=== PATIENT | male | born 1950 | race Caucasian/White ===

== ENCOUNTER 2016-07-06 17:56 | Emergency (ER) | payer OTHER ==
[~2016-07-06] VITALS: Ht 172.7 cm; Wt 67.3 kg
[~2016-07-06 17:56] MED LIST: ASCO100089 PO; ASPI-351 PO; ATEN25TA7 PO; HYDR1TAB PO; LISI20TA PO; SMV40T PO; TAM4 PO
--- NOTE | 2016-07-06 18:01 | ED.REPORT ---
HPI-Neurologic Deficit Date of Service Jul 06, 2016 ED Provider: Dr. Ortiz Pt is a 65 year old male with a history of HTN who presents to the ED via EMS with concerns for lateralizing weakness that started around noon today. He reports that he was at the store when he started to feel like he was going to pass out, and his left leg was slightly weak. Pt reports that he came home and he noticed that his left arm was weak as well. He denies any visual changes, numbness, or associate headache. He denies any history of smoking. He reports that he was recently diagnosed with a UTI, and it being treated with Ciprofloxacin. He reports that he is taking aspirin on a daily basis, but denies taking any other blood thinners. He has no other complaints. Nursing Notes Stated Complaint: CODE STROKE Chief Complaint: STROKE Nursing Notes Reviewed: Yes Allergies: Uncoded Allergies: BANANAS (Allergy, Unknown, UNKNOWN, 02/06/12) Scheduled Ascorbic Acid-Expunged Drug, Do Not Renew! (Vitamin C-Expunged Drug, Do Not Renew!) 1,000 Mg Tab.chew 1,000 MG PO BID Aspirin-Expunged Drug, Do Not Renew! (Aspirin-Expunged Drug, Do Not Renew!) 325 Mg Tablet 325 MG PO DAILY INSTRUCTED TO STOP Atenolol-Expunged Drug, Do Not Renew! (Atenolol-Expunged Drug, Do Not Renew!) 25 Mg Tablet 50 MG PO DAILY Lisinopril-Expunged Drug, Do Not Renew! (Lisinopril-Expunged Drug, Do Not Renew! ) 20 Mg Tablet 40 MG PO DAILY Simvastatin-Expunged Drug, Choose New Med! (Simvastatin-Expunged Drug, Choose New Med!) 40 Mg Tablet 40 MG PO DAILY Tamsulosin-Expunged Drug, Do Not Renew! (Flomax-Expunged Drug, Do Not Renew!) 0.4 Mg Capsule 0.4 MG PO DAILY Scheduled PRN Hydrocod/APAP-Expunged, Do Not Renew! (VICODIN 5/500-Expunged Drug, Do Not Renew ) 1 Udtab Tablet 1 UDTAB PO Q4 PRN PRN General Time Seen by Provider: 18:08 Chief Complaint Weakness arm... (Left), Weakness leg... (Left), Off balance Hx Obtained From: Patient Arrived By: Ambulance Sudden in Onset?: Yes Onset Occurred: 5 - 8 hours ago Symptom Duration: Since onset Severity: Current: No pain currently Severity: Maximum: No pain Similar Sx Previous: Yes Risk Factors TPA Administration/Criteria Stroke Thrombolytic Therapy : TPA Considered: Yes Neurologist Contacted: No TPA Administered Intravenously: No, exclusion criteria NIH Stroke Scale Level of Consciousness: Alert and responsive (0) Ask Month & Age: Both questions right (0) Open/Close Eyes/Hand Senior Occupational Therapist: Performs both tasks (0) Horizontal EO Movements: None (0) Visual Saldivar: No visual loss (0) Facial Palsy: Normal symmetry (0) Right Arm Motor Drift (10s): No drift 10 sec (0) Left Arm Motor Drift (10s): No drift 10 sec (0) Right Leg Motor Drift (5s): No drift 5 sec (0) Left Leg Motor Drift (5s): No drift 5 sec (0) Limb Ataxia FNF/Heel-Terrazas: No ataxia (0) Sensation (Arms/Legs/Face): No sensory loss (0) Language Aphasia: No aphasia, normal (0) Dysarthria: No dysarthria, normal (0) Extinction/Inattention: No exctinct/inattent (0) NIHSS Score: 0 Time NIHSS Performed: 18:12 Date NIHSS Performed: Jul 06, 2016 Past Medical History Past Medical History UTI Kidney Stones Reports: Hypertension Smoking History Never Smoker Social History Alcohol Use: Denies alcohol use Drug Use: Denies drug use Ambulatory Status Independent Review of Systems Constitutional: Denies: Chills, Fever, Malaise Respiratory: Denies: Non-productive cough, Shortness of breath, Wheezing Cardiovascular: Denies: Chest pain, Syncope GI: Denies: Abdominal pain, Constipation, Diarrhea, Nausea, Vomiting Musculoskeletal: Denies: Back pain Skin: Denies Diaphoresis Neurologic: Reports: Focal weakness, Lightheaded, Weakness, Denies: Headache Complete sys rev & neg: except as marked. Physical Exam Initial Vital Signs Vital Signs (First) Date Time Temp Pulse Resp B/P Pulse Ox O2 Delivery O2 Flow Rate FiO2 07/06/16 18:04 97 18 184/105 96 Room Air 07/06/16 19:30 36.6 See Paper Chart Initial VS: Reviewed ENT: Mucous membranes moist, Conjunctiva normal, No scleral icterus Neck: Supple, Non-tender, Full range of motion Skin: Warm, Dry, No cyanosis General/Constitutional: Awake, Alert, Well appearing, Well nourished, Cooperative Head / Eyes: Atraumatic, Normocephalic, PERRL, EOMI Respiratory / Chest: Atraumatic, Breath sounds NL, Breath sounds = bilat, No respiratory distress, No rales Cardiovascular: Heart rate NL, Regular rhythm, Heart sounds NL, No gallop, No murmurs Neurologic: Oriented X3, Speech NL, No sensory deficits NIH score of 0 - see risk section for details Interpretation & Diagnostics Lab Results Interpretation Result Diagram: 07/06/16 0800 07/06/16 0800 Test 07/06/16 08:00 07/06/16 18:00 White Blood Count 10.3th/mm3 (3.8-10.1) Red Blood Count 4.31mil/mm3 (4.40-5.80) Hemoglobin 12.3g/dL (13.8-17.2) Hematocrit 38.1% (41.0-50.0) Mean Corpuscular Volume 88.4fL (81-100) Mean Corpuscular Hemoglobin 28.5pg (27.0-35.0) Mean Corpuscular Hemoglobin Concent 32.3% (32.0-37.0) Red Cell Distribution Width 13.0% (12.3-15.4) Platelet Count 522bil/L (150-400) Neutrophils (%) (Auto) 61.1% (40-74) Lymphocytes (%) (Auto) 21.2% (14-46) Monocytes (%) (Auto) 10.3% (4-12) Eosinophils (%) (Auto) 6.5% (0-5) Basophils (%) (Auto) 0.4% (0-3) Prothrombin Time 10.5sec (8.1-12.5) Prothromb Time International Ratio 0.98ratio Sodium Level 136mEq/L (134-144) Potassium Level 4.1mEq/L (3.5-5.2) Chloride Level 97mEq/L (97-108) Carbon Dioxide Level 27mmol/L (18-29) Blood Urea Nitrogen 24mg/dL (8-27) Creatinine 1.28mg/dL (0.76-1.27) Estimat Glomerular Filtration Rate 60mL/min (>59) Glucose Level 93mg/dL (60-99) Calcium Level 8.6mg/dL (8.5-10.1) Total Bilirubin 0.2mg/dL (0.0-1.2) Aspartate Amino Transf (AST/SGOT) 35U/L (0-50) Alanine Aminotransferase (ALT/SGPT) 28U/L (0-44) Alkaline Phosphatase 69U/L (25-160) Total Protein 7.4g/dL (6.4-8.4) Albumin 3.8g/dL (3.4-5.0) Hold Purple Top Tube Received (Received) Hold Blue Top Tube Received (Received) Hold Red Top Tube Received (Received) Hold [place] Top Tube Received (Received) ECG Interpretation ECG Interpretation: SR - 85 LVH Left atrial enlargement Time: 18:28 Interpreted by: ED physician CT Head Interpretation IMPRESSION: Small acute bleed. Location would fit clinically. Location would suggest hypertensive bleed. This study fulfills neurological imaging criteria for inclusion or exclusion of acute stroke therapies based on available published neurological guidelines. Dictated by: Robert Camarillo M.D. on 07/06/2016 at 18:07 Study: Head CT no contrast Interpretation / Wet Read by: Interpret - Radiologist, Discussed w radiologist Re-Eval/Medical Decision Med Decision/Clinical Course This is a 65 year old male with a history of HTN who presents with rapidly resolving right sided weakness. CT scan confirms an intracranial hemorrhage. He currently has an NIH score of 0 and a GCS score of 15. Goals now are to keep to the bed at 30 degrees, watch for seizure activity and obtain an MAP 100-110. Plan to transfer him to [facility]. Source of Hx: Old records, EMS Re-Evaluation/Progress #1: Time of Eval: 18:19 Re-Evaluation/Progress Note: Pt is informed of his imaging results and the need to transfer him to [facility]. He understands and agrees, all questions are addressed. Re-Evaluation/Progress #2: Time of Eval: 18:40 Re-Evaluation/Progress Note: Pt is rechecked. He is informed that [facility] accepted the transfer and he will be leaving via airlift shortly. All questions are addressed. Consultation : Referral / Consult Name: [facility] Call Returned at: 18:37 Advertising Director: Will see patient Note: Spoke with Dr. Kendra Singer. Accepts transfer. Agrees with plan to obtain a systolic blood pressure of 160. Agrees with plan to transfer him via airlift. Counseled Regarding: Diagnosis, Lab results, Need for transfer Discharge & Departure Impression: Primary Impression: Intracranial hemorrhage Disposition: Transfer, Acute Care Facility Transfer Requested at: 18:32 Call returned time Receiving Hospital: [facility] Transfer Accepted: Yes Transfer Accepted at: 18:32 Transfer Reason: Higher level of care Spoke with: Attending physician (Dr. Kendra Singer) Patient Status: Stable Patient Informed: Yes Discharge Condition All VS Reviewed: Yes Condition: Stable Referrals: Indra Leonard ND (PCP) Crit Care Except Billable Proc Time Spent: 75-104 minutes Services Performed: Patient management by me, Time spent at bedside, Reviewing test results, Reviewing imaging, Discussing patient care, Documentation in record, Time with fam/surrogate Scribe Attestation Portions of this note were transcribed by Cherie Pizarro. I, Dr. Ortiz personally performed the history, physical exam and medical decision-making; I reviewed and confirmed the accuracy of the information in the transcribed note. Signed by: Jane Harris, 07/06/2016 18:52. copies to: Indra Leonard ND, Todd P DO Jul 06, 2016 18:01 TANGELA PIZARRO Jul 06, 2016 18:17
[2016-07-06 18:04] VITALS: BP 184/105; PULSE 97; RESP 18; O2SAT 96
[2016-07-06 18:12] LABS: BASOPHILS % (AUTO) 0.4 % (0-3); EOSINOPHILS % (AUTO) 6.5 % (0-5); MONOCYTES % (AUTO) 10.3 % (4-12); Mean Corpuscular Hemoglobin 28.5 pg (27.0-35.0); Mean Corpuscular Volume 88.4 fL (81-100); NEUTROPHILS % (AUTO) 61.1 % (40-74); Platelet Count 522 bil/L (150-400)
[2016-07-06] MEDS ORDERED: Labetalol 5 mg/mL 4 mL Inj ONE (18:12)
--- NOTE | 2016-07-06 18:14 | DRSVH ---
PROCEDURE: CT BRAIN (TPA) ([id number]) INDICATIONS: LEFT SIDED WEAKNESS TECHNIQUE: Noncontrast 4.5 mm thick angled axial sections acquired from the foramen magnum to the vertex, with c oronal reformats. COMPARISON: None. FINDINGS: Image quality: Excellent. CSF spaces: Basal cisterns are patent. No extra-axial fluid collections. The ventricles are symmet mere in size and shape. Brain: There is a focal area, 8 mm in dimension, of 64 Hounsfield units consistent with bleed in the right lower aspect of centrum semiovale or upper aspect of the region of the genu of or posterior li mb of the internal capsule. Edema is not appreciated indicating acute change consistent with history of urgency for CT reading. There is cerebral volume loss for age, with resultant ventricular and sulc al prominence. There are periventricular and deep white matter chronic small vessel ischemic changes . There is intracranial internal carotid artery atherosclerosis. Skull and face: Calvarium and visualized facial bones appear intact, without suspicious lesions. Sinuses: Visualized sinuses and mastoids are clear. IMPRESSION: Small acute bleed. Location would fit clinically. Location would suggest hypertensive ble ed. This study fulfills neurological imaging criteria for inclusion or exclusion of acute stroke therapie s based on available published neurological guidelines. Dictated by: Robert Camarillo M.D. on 07/06/2016 at 18:07 Approved by: Robert Camarillo M.D. on 07/06/2016 at 18:12
[2016-07-06] MEDS ORDERED: Labetalol 5 mg/mL 4 mL Inj IVPUSH ONE (18:15)
[2016-07-06 18:27] LABS: INR 0.98 ratio
[2016-07-06] MEDS: Labetalol 5 mg/mL 4 mL Inj IVPUSH PRN ×2 (18:38→18:48)
[2016-07-06 19:30] VITALS: BP 150/88; PULSE 78; RESP 16; O2SAT 96
[2016-10-18] MEDS ORDERED: HYDR12.5 PO (09:28)
[2016-10-18] MEDS ORDERED: ASPI-973 PO (09:28)
[2016-10-18] MEDS ORDERED: AMLO10TA3 PO (09:28)
[2016-10-18] MEDS ORDERED: TAMS0.4C98 PO (09:28)
[2016-10-18] MEDS ORDERED: ROSU40TA20 PO (09:28)
== END 2016-07-06 19:25 | disposition short-term general hospital (02) ==
LOC: SED 17:56
DX: I61.9 Nontraumatic intracerebral hemorrhage, unspecified (principal); R40.2410 Glasgow coma scale score 13-15, unspecified time; I10 Essential (primary) hypertension; Z87.440 Personal history of urinary (tract) infections; Z79.82 Long term (current) use of aspirin

== ENCOUNTER 2016-07-30 17:46 | Emergency (ER) | payer OTHER ==
[~2016-07-30] VITALS: Ht 170.2 cm; Wt 65.0 kg
[2016-07-30 17:51] VITALS: BP 143/90; PULSE 85; RESP 14; O2SAT 97
--- NOTE | 2016-07-30 18:07 | ED.REPORT ---
HPI-Stroke / CVA Jul 30, 2016 ED Provider: Chetan Meyer MD A 65 year old male with a history of hypertension, UTI, and recent hemorrhagic stroke (07/2016) presents to the ED with left-sided lip and distal left thumb paresthesias onset last night. The patient denies fever, vomiting, focal weakness, or other symptoms. These symptoms are dissimilar from those related to his recent hemorrhagic stroke, for which he was seen in the ED on 07/06/16 and subsequently transferred to [facility]. Nursing Notes Stated Complaint: STROKE SYMPTOMS Chief Complaint: Neuro Symptoms/ Deficits Nursing Notes Reviewed: Yes Allergies: Uncoded Allergies: BANANAS (Allergy, Unknown, UNKNOWN, 02/06/12) Scheduled Ascorbic Acid-Expunged Drug, Do Not Renew! (Vitamin C-Expunged Drug, Do Not Renew!) 1,000 Mg Tab.chew 1,000 MG PO BID (Reported) Aspirin-Expunged Drug, Do Not Renew! (Aspirin-Expunged Drug, Do Not Renew!) 325 Mg Tablet 325 MG PO DAILY (Reported) INSTRUCTED TO STOP Atenolol-Expunged Drug, Do Not Renew! (Atenolol-Expunged Drug, Do Not Renew!) 25 Mg Tablet 50 MG PO DAILY (Reported) Lisinopril-Expunged Drug, Do Not Renew! (Lisinopril-Expunged Drug, Do Not Renew! ) 20 Mg Tablet 40 MG PO DAILY (Reported) Simvastatin-Expunged Drug, Choose New Med! (Simvastatin-Expunged Drug, Choose New Med!) 40 Mg Tablet 40 MG PO DAILY (Reported) Tamsulosin-Expunged Drug, Do Not Renew! (Flomax-Expunged Drug, Do Not Renew!) 0.4 Mg Capsule 0.4 MG PO DAILY (Reported) Scheduled PRN Hydrocod/APAP-Expunged, Do Not Renew! (VICODIN 5/500-Expunged Drug, Do Not Renew ) 1 Udtab Tablet 1 UDTAB PO Q4 PRN PRN (Reported) General Time Seen by Provider: 18:06 Chief Complaint Other (Tingling) Left-sided, Face left (Lips), Hand left (Distal thumb) Hx Obtained From: Patient Arrived By: Walk-in Time last known well Patient noticed symptoms last night Sudden in Onset?: No Symptom Duration: Since onset Progression Since Onset: Unchanged Severity: Current: No pain currently Severity: Maximum: No pain Associated with: Denies: Vomiting Pertinent Negative: Pt denies other symptoms Pertinent Negative: Relieved by nothing Context Related History: Reports: Cerebrovascular accident, Intracranial bleed Context: Immunizations Unknown Recent Healthcare: Recent doctor visit, Recent hospitalization Similar Sx Previous: No Risk Factors NIH Stroke Scale Level of Consciousness: Alert and responsive (0) Ask Month & Age: Both questions right (0) Open/Close Eyes/Hand Residential Gas Heat Technician: Performs both tasks (0) Horizontal EO Movements: None (0) Visual Saldivar: No visual loss (0) Facial Palsy: Normal symmetry (0) Right Arm Motor Drift (10s): No drift 10 sec (0) Left Arm Motor Drift (10s): No drift 10 sec (0) Right Leg Motor Drift (5s): No drift 5 sec (0) Left Leg Motor Drift (5s): No drift 5 sec (0) Limb Ataxia FNF/Heel-Terrazas: No ataxia (0) Sensation (Arms/Legs/Face): No sensory loss (0) Language Aphasia: No aphasia, normal (0) Dysarthria: No dysarthria, normal (0) Extinction/Inattention: No exctinct/inattent (0) NIHSS Score: 0 Time NIHSS Performed: 18:10 Date NIHSS Performed: Jul 30, 2016 Past Medical History Past Medical History UTI Kidney Stones Hypertension Hemorrhagic stroke 07/2016 Past Surgical History None reported Smoking History Never Smoker Social History Alcohol Use: Denies alcohol use Drug Use: Denies drug use Ambulatory Status Independent Review of Systems Review of Systems Note: + Left-sided lip and distal left thumb paresthesias Constitutional: Denies: Fever Respiratory: Denies: Non-productive cough, Shortness of breath GI: Denies: Diarrhea, Vomiting Neurologic: Denies: Focal weakness Complete sys rev & neg: except as marked. Physical Exam Initial Vital Signs Vital Signs (First) Date Time Temp Pulse Resp B/P Pulse Ox O2 Delivery O2 Flow Rate FiO2 07/30/16 17:51 36.7 85 14 143/90 97 Room Air Initial VS: Reviewed Skin: Warm, Dry Psychiatric: Mood/affect normal, Behavior normal, Normal thought content General/Constitutional: Awake, Alert, No acute distress Head / Eyes: Atraumatic, Normocephalic, PERRL, EOMI, Visual acuity NL Respiratory / Chest: Breath sounds NL, Breath sounds = bilat, No respiratory distress Cardiovascular: Heart rate NL, Regular rhythm, Heart sounds NL Neurologic: Oriented X3, Speech NL, No motor deficits, CN II - XII intact Patient reports numbness to tip of index finger and thumb as well as left-sided upper and lower lips Interpretation & Diagnostics Lab Results Interpretation Test 07/30/16 18:30 Hold Purple Top Tube Received (Received) Hold Blue Top Tube Received (Received) Hold Red Top Tube Received (Received) Hold [place] Top Tube Received (Received) Hold [place] Top Tube Received (Received) ECG Interpretation ECG Interpretation: Sinus rhythm rate 82 Multiple ventricular premature complexes Probable left atrial enlargement LVH Time: 19:11 Interpreted by: ED physician CT Head Interpretation IMPRESSION: No acute intracranial abnormality. Dictated by: Edwin Quiles M.D. on 07/30/2016 at 19:09 Study: Head CT no contrast Interpretation / Wet Read by: Interpret - Radiologist Re-Eval/Medical Decision Source of Hx: Old records Re-Evaluation/Progress #1: Time of Eval: 20:27 Patient Status: Condition improved Re-Evaluation/Progress Note: Discussed with patient CT results and plan for consult with neurology at [facility]. Re-Evaluation/Progress #2: Time of Eval: 21:13 Patient Status: Condition improved Re-Evaluation/Progress Note: Discussed with patient CT and lab results, diagnosis, and plan for discharge. Follow-up and return to the ER instructions given. Patient agrees with plan for care and all questions were addressed. Consultation : Referral / Consult Name: Esther Ochoa MD Consulted With: Neurology Requested Call at: 20:40 Call Returned at: 20:58 Sub Plant Manager: Agrees with eval, Agrees with plan Note: [facility]: Discussed patient's case. Recommends starting on Amlodipine and discharge. However, the patient reports that he is in fact only on lisinopril 10 mg and no other antihypertensives. Dr. Ochoa had understood that the patient was on 40 mg of lisinopril and metoprolol already. She states that post hemorrhage edema even 2 or 3 weeks later can cause subtle sensory abnormalities only and felt that this was the most likely etiology for the symptoms the patient described. Counseled Regarding: Diagnosis, Lab results, Need for follow-up, When/why to return to ED Patient Discharge & Departure Impression: Primary Impression: Left sided numbness Disposition: Home Discharge Condition All VS Reviewed: Yes Condition: Improved Patient Instructions: Chronic Hypertension (ED) Additional Instructions: Thank you for entrusting us with your care. Your head CT was normal. No new stroke or hemorrhage demonstrated. Increased your Lisinopril dosage to 20mg per day. Check your blood pressure at rest a couple of times a day. Bring these numbers to your primary care provider. Call your primary care provider tomorrow for a follow-up appointment in 2 or 3 days. Return to the ER with any new or worsening symptoms, especially if there is any associated weakness. Referrals: Indra Leonard ND (PCP) [place] Attestation Portions of this note were transcribed by Anju Melendez. I, Dr. Meyer, personally performed the history, physical exam, and medical decision-making; I reviewed and confirmed the accuracy of the information in the transcribed note. Signed by: Jane Lima, 07/30/2016, 22:25 copies to: Indra Leonard ND, Kirk H MD Jul 30, 2016 18:07 ANJU MELENDEZ Jul 30, 2016 18:15
[2016-07-30 18:27] VITALS: BP 149/86; PULSE 84; RESP 14; O2SAT 97
[2016-07-30] MEDS ORDERED: predniSONE 20 mg Tablet PO ONE (19:00)
--- NOTE | 2016-07-30 19:11 | DRSVH ---
PROCEDURE: CT BRAIN WITHOUT CONTRAST ([id number]) INDICATIONS: numb face and left hand numb TECHNIQUE: Noncontrast 4.5 mm thick angled axial sections acquired from the foramen magnum to the vertex, with c oronal reformats. COMPARISON: None. FINDINGS: Image quality: Excellent. CSF spaces: Basal cisterns are patent. No extra-axial fluid collections. The ventricles are symmet mere in size and shape. Brain: No intracranial bleeds or masses. There is cerebral volume loss for age, with resultant vent ricular and sulcal prominence. There are periventricular and deep white matter chronic small vessel ischemic changes. There is intracranial internal carotid artery atherosclerosis. Skull and face: Calvarium and visualized facial bones appear intact, without suspicious lesions. Sinuses: Visualized sinuses and mastoids are clear. IMPRESSION: No acute intracranial abnormality. Dictated by: Edwin Quiles M.D. on 07/30/2016 at 19:09 Approved by: Edwin Quiles M.D. on 07/30/2016 at 19:09
[2016-07-30 19:26] VITALS: BP 164/88; PULSE 84; RESP 17; O2SAT 98
[2016-07-30 21:32] VITALS: BP 162/92; PULSE 90; RESP 16; O2SAT 96
[2016-10-18] MEDS ORDERED: ASPI-973 PO (09:28)
[2016-10-18] MEDS ORDERED: AMLO10TA3 PO (09:28)
[2016-10-18] MEDS ORDERED: HYDR12.5 PO (09:28)
[2016-10-18] MEDS ORDERED: TAMS0.4C98 PO (09:28)
[2016-10-18] MEDS ORDERED: ROSU40TA20 PO (09:28)
== END 2016-07-30 21:33 | disposition home or self-care (01) ==
LOC: SED 17:46
DX: R20.0 Anesthesia of skin (principal); I10 Essential (primary) hypertension; Z86.73 Personal history of transient ischemic attack (TIA), and cerebral infarction without residual deficits

== ENCOUNTER 2016-10-19 10:44 | Day surgery (SDC) | payer OTHER ==
[~2016-10-19] VITALS: Ht 170.2 cm; Wt 65.7 kg
[2016-10-19] VITALS (8 sets, daily range): BP systolic 136–149; BP diastolic 73–86; PULSE 69–89; RESP 14–18; O2SAT 96–99
[~2016-10-19 10:44] MED LIST changes: +AMLO10TA3 PO; -ASCO100089 PO; -ASPI-351 PO; +ASPI-973 PO; -ATEN25TA7 PO; +HYDR12.5 PO; -HYDR1TAB PO; -LISI20TA PO; +Lactated Ringer's 1,000 ML IV SCH; +ROSU40TA20 PO; -SMV40T PO; -TAM4 PO; +TAMS0.4C98 PO
[2016-10-19] MEDS ORDERED: Propofol 10,000 mCg/mL 20 mL Inj ONE (10:45)
[2016-10-19] MEDS ORDERED: Ondansetron 2 mg/mL 2 mL Inj ONE (10:45)
[2016-10-19] MEDS ORDERED: MetoCLOpramide 5 mg/mL 2 mL Inj ONE (10:45)
[2016-10-19] MEDS ORDERED: CeFAZolin 2 Gm/50 mL D5W Duplex Bag IV ONE (10:52)
[2016-10-19] MEDS ORDERED: Lactated Ringer's 1,000 ML IV ONE (11:01)
--- NOTE | 2016-10-19 11:37 | PCM.HPANE ---
Patient Data Surgeon Admitting Provider: Attending Provider:Tita Krishna MD Primary Care Physician:Indra Leonard ND Other Provider:Jules Keenan Anesthesia Reason for Visit Calculus Of Ureter Ht/WT & BMI Height (Feet): 5 Height (Inches): 7.00 Weight (Kilograms): 65.700 Body Mass Index 22.00 Allergies Uncoded Allergies: BANANAS (Allergy, Unknown, UNKNOWN, 02/06/12) Past Anesthesia History Anesthesia History: Denies:: Abnormal Airway, Anesthesia Reactions, Difficult Intubation, Fam Anesthesia Reaction, Fam Malignant Hypertherm, Malignant Hyperthermia Diabetes History Hx Diabetes?: No MRSA MRSA: No Medications Blood Thinner: Aspirin Hypertension Medication: Yes Home Meds Incl Beta Renny: No Reported Medications Tamsulosin (Flomax)0.4 Mg Capsule0.4 Mg PO DAILY Ref 0 10/18/16 Aspirin 81 Mg Bhwick58 Mg PO DAILY Ref 0 10/18/16 Rosuvastatin Calcium 40 Mg Dvvwyf11 Mg PO DAILY 10/18/16 Hydrochlorothiazide 12.5 Mg Xtoevsq22.5 Mg PO DAILY 30 Days Ref 0 10/18/16 Amlodipine 10 Mg Gbjhrj22 Mg PO DAILY Ref 0 10/18/16 Discontinued Reported Medications Tamsulosin-Expunged Drug, Do Not Renew! (Flomax-Expunged Drug, Do Not Renew!) 0.4 Mg Capsule0.4 Mg PO DAILY #30 CAP 05/08/12 Ascorbic Acid-Expunged Drug, Do Not Renew! (Vitamin C-Expunged Drug, Do Not Renew!)1,000 Mg Tab.chew1,000 Mg PO BID 02/06/12 Lisinopril-Expunged Drug, Do Not Renew! 20 Mg Gtcepr65 Mg PO DAILY 01/30/12 Atenolol-Expunged Drug, Do Not Renew! 25 Mg Rgvuuz10 Mg PO DAILY 01/30/12 Aspirin-Expunged Drug, Do Not Renew! 325 Mg Klwley491 Mg PO DAILY INSTRUCTED TO STOP 06/17/11 Hydrocod/APAP-Expunged, Do Not Renew! (VICODIN 5/500-Expunged Drug, Do Not Renew )1 Udtab Tablet1 Udtab PO Q4 PRN 06/17/11 Simvastatin-Expunged Drug, Choose New Med! 40 Mg Dkrgyf13 Mg PO DAILY 06/17/11 History History of ENT Problems?: Yes HEENT History: Positive for:: Sinus Problem (hx septoplasty early ) Denies:: Abnormal Airway Cataracts Difficult Intubation Dysphagia Glaucoma Hearing Problem TMJ Denture Type: None Teeth Condition: Within Normal Limits Hx of Heart Problems?: Yes Cardiovascular History: Positive for:: Cardiac Surgery (JUN 2011 [place] AND STENT PLACEMENT) Hypertension Denies:: AICD Chest Pain Congestive Heart Failure Heart Murmur Irregular Heartbeat Pacemaker Peripheral Vascular Hx of Respiratory Problem?: Yes Respiratory History: Positive for:: Asthma (as child- resolved ) Pneumonia (remote hx of - single episode ) Use of C-PAP Machine (recommended after stroke- no sleep study done yet ) Denies:: COPD Emphysema Oxygen Administration Tuberculosis Use of Inhalers / NEBS Hx Neurologic Problems?: Yes Neurological History: Positive for:: CVA (july 2016- treated at [facility]- no residual ) Headaches (r/t neck pain) Denies:: Multiple Sclerosis Parkinson's Disease Seizures TIA Hx of GI Problems?: Yes Hx of Problems?: Yes Genitourinary History: Positive for:: Kidney Stones (left current admission problem, prior hx of) Urinary Tract Infection (spring last episode) Male Hx: Positive for:: Prostate Problems (BPH) Denies:: Scrotal Mass Testicular Surgery Skin History: Denies:: History Skin Disorders? Pressure Ulcers Hx Musculoskeletal Problems?: No Musculoskeletal History: Denies:: Back Injury Fibromyalgia Joint Replacement Musculoskeletal Trauma Myasthenia Gravis Osteoarthritis Rheumatoid Arthritis Systemic Lupus Hx of Psycho/Social Problems?: No Psycho Social History: Denies:: Anxiety Hx Depression Hx Surgeries?: Yes (lithostripsy, angiogram with stent, hernia repair) Hx Any Other Health Problems?: Yes Other History: Positive for:: Hospitalization Denies:: Cancer Endocrine Disease Thyroid Disease History Blood Transfusions: Positive for:: Accept Blood Products? Denies:: Blood Transfuse Reaction Blood Transfusions Hx Diabetes: No Hx Alcohol Use: NoHx Substance Use: No Smoking Status: Former Smoker Have You Smoked inLast 12 mo: No Stop/Bang Treated for Sleep Apnea?: No Do You Have a CPAP Machine?: No P-Blood Pressure: treated: Yes B- Body Mass Index > 35 kg/m2: No A- Age over 50: Yes N- Neck Large Circumference: No G- Gender Male: Yes MAHESH Risk Assessment: Low Risk, <3 Yes Risk Assessment Category Category 1A: Patient has history of documented sleep apnea, and HAS NOT received any narcotic, sedative or anesthesia administration during this stay. Category 1B: Patient has history of documented sleep apnea, and HAS received any narcotic , sedative or anesthesia administration during this stay Category 2: Patient has SUSPECTED Obstructive Sleep Apnea, and HAS received any narcotic , sedative or anesthesia administration during this stay. Category 3: Patient has SUSPECTED Obstructive Sleep Apnea and HAS NOT received narcotic, sedative or anesthesia administration during this stay. Category 4: Outpatient in Procedural Areas with known sleep apnea or who screen positive for High Risk via the STOP/BANG questionnaire. Exam Exam Vital Signs Vital Signs Date Time Temp Pulse Resp B/P Pulse Ox O2 Delivery O2 Flow Rate FiO2 10/19/16 11:17 36.4 89 18 145/79 97 Room Air General Appearance: Oriented X3 HEENT/AIRWAY: MP 2 Lungs: Normal Air Movement Heart: Regular Rate/Rhythm Meds/Labs/Diagnostics Admission Meds Current Medications Acetaminophen 1000 mg 1,000 mg STK-MED ONCE IV Last administered on 10/19/16 11:25; Start 10/19/16 at 10:53; Stop 10/19/16 at 10:57; Status DC Lactated Ringer's (Lr) 1,000 ml @ ud STK-MED ONCE IV Last administered on 10/19 11:01; Start 10/19/16 at 11:01; Stop 10/19/16 at 11:02; Status DC Plan Impression Patient chart reviewed, patient interviewed and anesthestic plan with risks, benefits, and alternatives discussed, and informed consent obtained. ASA Physical Status: ASA3 Severe Disease Anesthetic Plan: GA Bene/Risks/Altern/Consents: Yes HP Complete Prior to Induction: Yes Dung Paniagua MD Oct 19, 2016 11:37
[2016-10-19] MEDS ORDERED: Lactated Ringer's 1,000 ML IV SCH (12:40)
[2016-10-19] MEDS ORDERED: Dexamethasone 4 mg/mL Inj IVPUSH PRN (12:40)
[2016-10-19] MEDS ORDERED: Lactated Ringer's 500 ML IV PRN (12:40)
[2016-10-19] MEDS ORDERED: fentaNYL-PF 50 mCg/mL 2 mL Inj IVPUSH PRN (12:40)
[2016-10-19] MEDS ORDERED: Phenylephrine 10,000 mCg/mL Inj IVPUSH PRN (12:40)
[2016-10-19] MEDS ORDERED: HYDROmorphone 1 mg/mL Inj IVPUSH PRN (12:40)
[2016-10-19] MEDS ORDERED: EPHEDrine Sulfate 50 mg/mL Inj IVPUSH PRN (12:40)
[2016-10-19] MEDS ORDERED: MetoCLOpramide 5 mg/mL 2 mL Inj IVPUSH PRN (12:40)
[2016-10-19] MEDS ORDERED: Ondansetron 2 mg/mL 2 mL Inj IVPUSH PRN (12:40)
[2016-10-19] MEDS ORDERED: Furosemide 10 mg/mL 2 mL Inj IV ONE (13:30)
--- NOTE | 2016-10-19 14:08 | PCM.ANEP1 ---
Post Anesthesia PACU Phase 1 Assessment Vital Signs Vital Signs Date Time Temp Pulse Resp B/P Pulse Ox O2 Delivery O2 Flow Rate FiO2 10/19/16 14:00 85 15 138/73 97 Room Air 10/19/16 13:45 81 16 142/77 98 Room Air 10/19/16 13:40 72 14 142/79 99 Simple Mask 10 10/19/16 13:35 69 15 136/80 99 Simple Mask 10 10/19/16 13:30 36.6 77 17 140/84 99 Simple Mask 10 10/19/16 11:17 36.4 89 18 145/79 97 Room Air Anesthetic Administered: GA Level of Alertness: Awake, talking Pain: No Nausea or Vomiting: No CV Function & Hydration Stable: Yes Airway Device: Lungs: Normal Air Movement PACU Phase 2 Assessment Patient Instructions Provided: N/A Dung Paniagua MD Oct 19, 2016 14:08
--- NOTE | 2016-10-19 19:03 | OP ---
[address] [address] OPERATIVE REPORT PATIENT: KATYA HOWARD : 1950 MR#: [id number] ADMIT: 10/19/2016 JOB ID: [id number] DATE OF SURGERY: 10/19/2016 PREOPERATIVE DIAGNOSIS(ES): 1. Obstructing 1.3 cm left ureteropelvic junction calculus. 2. Large left renal stone burden. 3. Left renal colic. POSTOPERATIVE DIAGNOSIS(ES): 1. Obstructing 1.3 cm left ureteropelvic junction calculus. 2. Large left renal stone burden. 3. Left renal colic. PROCEDURE PERFORMED: 1. Cystoscopy and left ureteral stent placement. 2. Left extracorporeal shockwave lithotripsy (ESWL). (Maximal power level of 5.0 x 2500 shocks.) SURGEON: Tita Krishna MD ANESTHESIOLOGIST: Dung Paniagua MD ANESTHESIA: General. PROCEDURE SUMMARY: The patient was positioned in supine and was administered general anesthesia. He was then positioned appropriately on the lithotripsy table in semilithotomy. The lower abdomen, genitalia, and groin were prepped and draped in sterile fashion. The 22-Jamaican panendoscope was then passed through the lower urinary tract with findings of a normal urethra, intact external sphincter, a 4.5-5 cm obstructing trilobar hyperplasia, and a bladder with 2+ trabeculation and a few small stones in the bladder floor. Orifices were normal position bilaterally. The left was slightly patulous. Next, a 0.35 Glidewire was passed into the left collecting system under direct and fluoroscopic guidance. Over this a 6-Jamaican x 22-32 cm multilength stent was positioned satisfactorily, again under direct and fluoroscopic guidance. NO RETRIEVAL LINE WAS LEFT IN PLACE. Next the bladder was drained completely. All instrumentation was removed. The patient was then repositioned supine and the above-described stone was localized in the X, Y, and Z planes. Lithotripsy was commenced at minimal power level and continued for approximately 200 shocks. A 2-minute pause was then conducted, after which lithotripsy was again commenced, initially at low power level and gradually increased to a maximal power low power level of 5.0. A total of 2500 shocks was delivered to the stone, with good evidence of comminution. The stent was left indwelling. The patient was then awakened, transferred to a gurney, and transferred to recovery in stable condition.
== END 2016-10-19 23:59 | disposition home or self-care (01) ==
LOC: SAS 10:44
PROVIDERS: ATTEND Specialist
DX: N20.2 Calculus of kidney with calculus of ureter (principal); I10 Essential (primary) hypertension; I25.10 Atherosclerotic heart disease of native coronary artery without angina pectoris; N40.0 Benign prostatic hyperplasia without lower urinary tract symptoms; J45.909 Unspecified asthma, uncomplicated; M50.30 Other cervical disc degeneration, unspecified cervical region; I25.2 Old myocardial infarction; Z79.82 Long term (current) use of aspirin; Z87.442 Personal history of urinary calculi; Z95.5 Presence of coronary angioplasty implant and graft; Z87.891 Personal history of nicotine dependence
CPT/HCPCS: 50590; 52332; C2617; J0131; J0690; J1940; J2405; J2765; J7120

== ENCOUNTER 2016-11-16 09:11 | Day surgery (SDC) | payer OTHER ==
[2016-11-16] VITALS (9 sets, daily range): BP systolic 112–155; BP diastolic 64–83; PULSE 8–90; RESP 11–16; O2SAT 96–100
[~2016-11-16] VITALS: Ht 170.2 cm; Wt 63.4 kg
[~2016-11-16 09:11] MED LIST changes: +Acetaminophen IV 1,000 MG in IV Premix 1 EACH IV ONE; -HYDR12.5 PO; +HYDR25TA4 PO; +LIP40 PO; -Lactated Ringer's 1,000 ML IV SCH
[2016-11-16] MEDS ORDERED: fentaNYL-PF 50 mCg/mL 2 mL Inj ONE (09:12)
[2016-11-16] MEDS ORDERED: Ondansetron 2 mg/mL 2 mL Inj ONE (09:12)
[2016-11-16] MEDS ORDERED: Propofol 10,000 mCg/mL 20 mL Inj ONE (09:12)
[2016-11-16] MEDS ORDERED: Dexamethasone 4 mg/mL Inj ONE (09:12)
[2016-11-16] MEDS: Lactated Ringer's 1,000 ML IV SCH ×3 (10:10→12:46)
[2016-11-16] MEDS ORDERED: Lactated Ringer's 500 ML IV PRN (11:30)
[2016-11-16] MEDS ORDERED: Dexamethasone 4 mg/mL Inj IVPUSH PRN (11:30)
[2016-11-16] MEDS ORDERED: HYDROmorphone 1 mg/mL Inj IVPUSH PRN (11:30)
[2016-11-16] MEDS ORDERED: EPHEDrine Sulfate 50 mg/mL Inj IVPUSH PRN (11:30)
[2016-11-16] MEDS ORDERED: MetoCLOpramide 5 mg/mL 2 mL Inj IVPUSH PRN (11:30)
[2016-11-16] MEDS ORDERED: Ondansetron 2 mg/mL 2 mL Inj IVPUSH PRN (11:30)
[2016-11-16] MEDS ORDERED: Lactated Ringer's 1,000 ML IV SCH (11:30)
[2016-11-16] MEDS ORDERED: fentaNYL-PF 50 mCg/mL 2 mL Inj IVPUSH PRN (11:30)
[2016-11-16] MEDS ORDERED: Phenylephrine 10,000 mCg/mL Inj IVPUSH PRN (11:30)
--- NOTE | 2016-11-16 11:30 | PCM.HPANE ---
Patient Data Date of Service: Nov 16, 2016 (0068) Surgeon Admitting Provider: Attending Provider:Tita Krishna MD Primary Care Physician:Indra Leonard ND Other Provider:Jules Keenan Anesthesia Reason for Visit Left Ureteral Stone Ht/WT & BMI Height (Feet): 5 Height (Inches): 7.00 Weight (Kilograms): 63.400 Body Mass Index 21.00 Allergies Uncoded Allergies: BANANAS (Allergy, Unknown, UNKNOWN, 02/06/12) Past Anesthesia History Anesthesia History: Denies:: Abnormal Airway, Anesthesia Reactions, Difficult Intubation, Fam Anesthesia Reaction, Fam Malignant Hypertherm, Malignant Hyperthermia Diabetes History Hx Diabetes?: No MRSA MRSA: No Medications Blood Thinner: Aspirin Last Dose Blood Thinner: Nov 14, 2016 Hypertension Medication: No Home Meds Incl Beta Renny: No Reported Medications Atorvastatin (Lipitor)40 Mg Vtygkg03 Mg PO DAILY Ref 0 11/14/16 Hydrochlorothiazide 25 Mg Tszhmi65 Mg PO DAILY 30 Days Ref 0 11/14/16 Tamsulosin (Flomax)0.4 Mg Capsule0.4 Mg PO DAILY Ref 0 10/18/16 Aspirin 81 Mg Fgvwup92 Mg PO DAILY Ref 0 10/18/16 Amlodipine 10 Mg Jygftd41 Mg PO DAILY Ref 0 10/18/16 Discontinued Reported Medications Rosuvastatin Calcium 40 Mg Esmbyq72 Mg PO DAILY 10/18/16 Hydrochlorothiazide 12.5 Mg Codjybm90.5 Mg PO DAILY 30 Days Ref 0 10/18/16 History History of ENT Problems?: Yes HEENT History: Positive for:: Sinus Problem (hx septoplasty early ) Denies:: Abnormal Airway Cataracts Difficult Intubation Dysphagia Glaucoma Hearing Problem TMJ Denture Type: None Teeth Condition: Within Normal Limits Hx of Heart Problems?: Yes Cardiovascular History: Positive for:: Cardiac Surgery (JUN 2011 [place] AND STENT PLACEMENT) Coronary Artery Disease Hypertension Denies:: AICD Abdominal Aortic Aneurism Atrial Fibrillation Chest Pain Congestive Heart Failure Edema Heart Murmur Irregular Heartbeat Pacemaker Peripheral Vascular Rheumatic Fever Thrombophlebitis Valvular Heart Disease Hx of Respiratory Problem?: Yes Respiratory History: Positive for:: Asthma (as child- resolved ) Pneumonia (remote hx of - single episode ) Denies:: COPD Chest Surgery Cough Dyspnea Emphysema Oxygen Administration Pulmonary Embolism Tuberculosis Use of C-PAP Machine (recommended after stroke- no sleep study done yet ) Use of Inhalers / NEBS Hx Neurologic Problems?: Yes Neurological History: Positive for:: CVA (july 2016- treated at [facility]- no residual ) Headaches (on occassion from neck discomfort) Denies:: Alzheimer's Disease Dementia Dizziness Multiple Sclerosis Parkinson's Disease Seizures TIA Hx of GI Problems?: Yes Hx of Problems?: Yes Genitourinary History: Positive for:: Kidney Stones (left current admission problem, prior hx of) Urinary Tract Infection (Currently being treated) Denies:: HX of Hemodialysis HX of Peritoneal Dialysis: No Male Hx: Positive for:: Prostate Problems (BPH) Denies:: Scrotal Mass Testicular Surgery Skin History: Denies:: History Skin Disorders? Pressure Ulcers Hx Musculoskeletal Problems?: No Musculoskeletal History: Denies:: Back Injury Degenerative Joint Fibromyalgia Joint Replacement Musculoskeletal Trauma Myasthenia Gravis Osteoarthritis Rheumatoid Arthritis Systemic Lupus Hx of Psycho/Social Problems?: No Psycho Social History: Denies:: Anxiety Hx Depression Hx Surgeries?: Yes (lithostripsy, angiogram with stent, hernia repair) Hx Any Other Health Problems?: Yes Other History: Positive for:: Hospitalization Denies:: Cancer Endocrine Disease Thyroid Disease History Blood Transfusions: Positive for:: Accept Blood Products? Denies:: Blood Transfuse Reaction Blood Transfusions Hx Diabetes: No Hx Alcohol Use: NoHx Substance Use: No Smoking Status: Former Smoker Have You Smoked inLast 12 mo: No Stop/Bang S-Snoring: Do You Snore Loudly: No T-Tired: feel tired, fatigued: No O-Obsered: Observed not breath: No P-Blood Pressure: treated: Yes B- Body Mass Index > 35 kg/m2: No A- Age over 50: Yes N- Neck Large Circumference: No G- Gender Male: Yes MAHESH Total Score: 3 MAHESH Risk Assessment: Low Risk, <3 Yes Risk Assessment Category Category 1A: Patient has history of documented sleep apnea, and HAS NOT received any narcotic, sedative or anesthesia administration during this stay. Category 1B: Patient has history of documented sleep apnea, and HAS received any narcotic , sedative or anesthesia administration during this stay Category 2: Patient has SUSPECTED Obstructive Sleep Apnea, and HAS received any narcotic , sedative or anesthesia administration during this stay. Category 3: Patient has SUSPECTED Obstructive Sleep Apnea and HAS NOT received narcotic, sedative or anesthesia administration during this stay. Category 4: Outpatient in Procedural Areas with known sleep apnea or who screen positive for High Risk via the STOP/BANG questionnaire. Exam Exam Vital Signs Vital Signs Date Time Temp Pulse Resp B/P Pulse Ox O2 Delivery O2 Flow Rate FiO2 11/16/16 09:58 36.6 82 12 126/75 96 Room Air General Appearance: Alert, Oriented X3 HEENT/AIRWAY: MP 1 Lungs: Clear to Auscultation Heart: Exam Unremarkable Meds/Labs/Diagnostics Admission Meds Current Medications Lactated Ringer's (Lr) 1,000 ml @ 120 mls/hr Q8H20M IV Last administered on t 10:10; Start 11/16/16 at 05:00; Stop 11/16/16 at 13:19 Plan Impression Patient chart reviewed, patient interviewed and anesthestic plan with risks, benefits, and alternatives discussed, and informed consent obtained. NPO per Anesth. Guidelines: Yes ASA Physical Status: ASA2 Mod Systemic Disease Anesthetic Plan: GA Bene/Risks/Altern/Consents: Yes HP Complete Prior to Induction: Yes Holger Ruiz MD Nov 16, 2016 11:30
[2016-11-16] MEDS ORDERED: Furosemide 10 mg/mL 2 mL Inj IV ONE (12:55)
--- NOTE | 2016-11-16 12:57 | PCM.ANEP1 ---
Post Anesthesia PACU Phase 1 Assessment Vital Signs 132/70, 74, 12, 100%, 36.2 Vital Signs Date Time Temp Pulse Resp B/P Pulse Ox O2 Delivery O2 Flow Rate FiO2 11/16/16 09:58 36.6 82 12 126/75 96 Room Air Anesthetic Administered: GA Level of Alertness: Awake, talking CHEN's with Equal Strength: Yes Pain: No Nausea or Vomiting: No CV Function & Hydration Stable: Yes Airway Device: NONE Oxygen Delivery: Simple Mask Lungs: Clear to Auscultation Dermatome Level: Full Sensation Summary UNEVENTFUL GA PACU Phase 2 Assessment Complications: No Follow up Care: No Patient Instructions Provided: N/A Holger Ruiz MD Nov 16, 2016 12:57
--- NOTE | 2016-11-16 13:19 | OP ---
[address] [address] OPERATIVE REPORT PATIENT: KATYA HOWARD : 1950 MR#: [id number] ADMIT: 11/16/2016 JOB ID: [id number] DATE OF SURGERY: 11/16/2016 SURGEON: Tita Krishna MD ANESTHESIOLOGIST: Holger Ruiz MD ANESTHESIA: General. PREOPERATIVE DIAGNOSIS(ES): 1. Partial left staghorn calculus. 2. Multiple left ureteral pelvic junction and proximal ureteral calculi. 3. Indwelling left ureteral stent. 4. Status post left ESWL, stage 1. 5. Recurrent urinary tract infection. POSTOPERATIVE DIAGNOSIS(ES): 1. Partial left staghorn calculus. 2. Multiple left ureteral pelvic junction and proximal ureteral calculi. 3. Indwelling left ureteral stent. 4. Status post left ESWL, stage 1. 5. Recurrent urinary tract infection. OPERATION PERFORMED: Second-stage left ESWL (maximal power of 5.0 x2500 shocks. PROCEDURE SUMMARY: The patient was positioned supine on the lithotripsy gurney and the above-described stone was localized in the X, Y, and Z plane. Lithotripsy was then commenced at minimal power level and gradually increased to maximum power level. The stone and its fragments were relocalized numerous times throughout the case using C-arm radiography. The procedure was then terminated. The patient was awakened, transferred to the gurney, and transferred to the recovery area awake and in stable condition. The patient tolerated the procedure well.
[2016-11-16] MEDS ORDERED: Lactated Ringer's 1,000 ML IV ONE (13:21)
== END 2016-11-16 23:59 | disposition home or self-care (01) ==
LOC: SAS 09:11
PROVIDERS: ATTEND Specialist
DX: N20.0 Calculus of kidney (principal); N20.1 Calculus of ureter; I10 Essential (primary) hypertension; I25.10 Atherosclerotic heart disease of native coronary artery without angina pectoris; I25.2 Old myocardial infarction; J45.909 Unspecified asthma, uncomplicated; Z86.73 Personal history of transient ischemic attack (TIA), and cerebral infarction without residual deficits; Z87.891 Personal history of nicotine dependence; Z95.5 Presence of coronary angioplasty implant and graft; Z79.82 Long term (current) use of aspirin
CPT/HCPCS: 50590; J0131; J0690; J1100; J1940; J2405; J3010; J7120